=== PATIENT | male | born 1990 | race Caucasian/White ===

== ENCOUNTER 2017-06-16 15:50 | Emergency (ER) | payer OTHER ==
[~2017-06-16] VITALS: Ht 185.4 cm; Wt 109.5 kg
[2017-06-16] MEDS ORDERED: CEPH500C PO (16:04)
[2017-06-16] MEDS ORDERED: IBUP-1022 PO (16:04)
[2017-06-16] MEDS ORDERED: TERB1CRE12 EXT (16:04)
[2017-06-16] MEDS ORDERED: BACT800T5 PO ×2 (16:41→16:53)
[2017-06-16] MEDS ORDERED: BACTRIM 160MG/800MG DS TAB PO ONE (16:45)
[2017-06-16 16:55] VITALS: BP 128/77
--- NOTE | 2017-06-16 18:17 | REP ---
REASON: Pain after trauma. PRIORS: None. FINDINGS: The joint spaces are symmetric and relatively well maintained. There is no evidence of acute fracture or destructive osseous lesion. IMPRESSION: Negative. Signed by Candido Alfaro DO 06/17/2017 02:21 P
== END 2017-06-16 16:56 | disposition home or self-care (01) ==
LOC: M ED 15:50
DX: S90.32XA Contusion of left foot, initial encounter (principal); L08.9 Local infection of the skin and subcutaneous tissue, unspecified; X58.XXXA Exposure to other specified factors, initial encounter; Y92.89 Other specified places as the place of occurrence of the external cause; Y93.89 Activity, other specified; Y99.1 Military activity; Z87.891 Personal history of nicotine dependence; Z79.899 Other long term (current) drug therapy